=== PATIENT | female | born 1995 | race Two or more races ===

== ENCOUNTER 2022-04-12 12:40 | Inpatient (IN) | payer SELFPAY ==
[~2022-04-12] VITALS: Ht 160 cm; Wt 80.5 kg
[2022-04-12] MEDS ORDERED: miSOPROStol 50 MCG per PRE-CUT 1/2 TAB PO PRN (13:45)
[2022-04-12] MEDS ORDERED: NS/OXYTOCIN 20UNITS 1,000 ML IV SCH (13:45)
[2022-04-12] MEDS ORDERED: LIDOCAINE 2%HCL (LOCAL ANESTH.) INJ 10ml MDV IJ PRN (13:45)
[2022-04-12] MEDS ORDERED: TERBUTALINE SULFATE 1 MG/ML 1ML VIAL SC PRN (13:45)
[2022-04-12] MEDS ORDERED: PROMETHAZINE HCL 25 MG/ML 1ML IV PRN (13:45)
[2022-04-12] MEDS ORDERED: NALBUPHINE HCL 10 MG/1ml INJECTION IV PRN (13:45)
[2022-04-12] MEDS ORDERED: PHISODERM TOP SOLN 240ML BTL TOP PRN (13:45)
[2022-04-12] MEDS ORDERED: BUTORPHANOL TARTRATE 2 MG/1 ML VIAL IV PRN ×2 (13:45)
[2022-04-12] MEDS ORDERED: NS/OXYTOCIN 20UNITS 500 ML IV ONE ×2 (13:45→14:15)
[2022-04-12 14:21] LABS: Urine Bacteria NONE SEEN /hpf (None Seen); Urine Blood 2+ /uL (Negative); Urine Mucus FEW (None Seen); Urine Specific Gravity 1.023 (1.001-1.035); Urine WBC 8 /hpf (0 - 5)
[2022-04-12 14:35] LABS: Eosinophils # (auto) 0 10 ^3/uL (0-0.8); Eosinophils % (auto) 0.4 % (0.0-7.0); Lymphocytes # (auto) 1.8 10 ^3/uL (0.4-5.4); Monocytes # (auto) 0.6 10 ^3/uL (0-1.3); White Blood Cell 8.9 10^3/uL (4.4-10.8)
[2022-04-12 14:37] LABS: Basophils # (auto) 0 10 ^3/uL (0-0.2); Basophils % (auto) 0.3 % (0.0-2.0); Hematocrit 37.4 % (36.0-46.0); Hemoglobin 12.2 g/dL (12.2-16.2); Lymphocytes % (auto) 19.8 % (10.0-50.0); Mean Corpuscular Hemoglobin 25.2 pg (28.0-32.0); Mean Corpuscular Hgb Conc. 32.5 g/dL (32.0-36.0); Mean Corpuscular Volume 77.6 fL (80.0-100.0); Neutrophils # (auto) 6.5 10 ^3/uL (1.6-8.6); Neutrophils % (auto) 72.5 % (37.0-80.0); Red Blood Cells 4.83 10^6/uL (4.0-5.20); Red Cell Distribution Width 18.5 % (11.8-14.3)
[2022-04-12] MEDS ORDERED: miSOPROStol 100 mcg TAB PR PRN (14:45)
[2022-04-12] MEDS ORDERED: miSOPROStol 100 mcg TAB SL PRN (14:45)
[2022-04-12] MEDS ORDERED: CARBOPROST TROMETHAMINE 250 MCG/1ML VIAL IM PRN (14:45)
[2022-04-12 14:53] LABS: Albumin 2.8 g/dL (3.4-5.0); BUN/Creatinine Ratio 16.7; Calcium 9.1 mg/dL (8.5-10.1); INR 0.87 (0.9-1.15); Partial Thromboplastin Time 27.1 sec (24.6-33.4); Potassium 4.2 mmol/L (3.5-5.1)
[2022-04-12 14:55] LABS: Alcohol, Urine < 3.0 mg/dL (0-10); Amphetamine Screen, Urine NEGATIVE (NEGATIVE); Barbiturate Scree,Urine NEGATIVE (NEGATIVE); Benzodiazephine Screen, Urine NEGATIVE (NEGATIVE); Cannabinoid Screen, Urine NEGATIVE (NEGATIVE); Cocaine Screen, Urine NEGATIVE (NEGATIVE); Opiate Scree,Urine NEGATIVE (NEGATIVE); Phencyclidine Screen, Urine NEGATIVE (NEGATIVE)
[2022-04-12 14:56] LABS: Bilirubin, Total 0.2 mg/dL (0.2-1.0); Total Protein 6.3 g/dL (6.4-8.2)
[2022-04-12] MEDS: LACTATED RINGER'S 1,000 ML IV SCH ×2 (15:17→17:01)
[2022-04-12] MEDS: DERMOPLAST 60ML BOTTLE TOP PRN (17:02)
[2022-04-12] MEDS: WITCH HAZEL-GLYCERIN PAD TOP PRN (17:02)
[2022-04-12] MEDS ORDERED: fentaNYL 400mCg/200ml W ROPIVA 200 ML EPI SCH (19:45)
[2022-04-12] MEDS ORDERED: ePHEDrine SULFATE 50 MG/ML AMP IV ONE (19:45)
[2022-04-12] MEDS ORDERED: LACTATED RINGER'S 1,000 ML IV ONE (19:45)
[2022-04-12] MEDS ORDERED: NALOXONE HCL 0.4 MG/ML VIAL IV ONE (19:45)
[2022-04-12] MEDS ORDERED: fentaNYL CITRATE 100 MCG/2 ML VL IV ONE (20:00)
[2022-04-12] MEDS ORDERED: ROPIVACAINE HCL 200 ML EPI SCH (20:00)
[2022-04-13] MEDS ORDERED: ACETAMINOPHEN 325 MG TAB PO PRN (07:00)
[2022-04-13] MEDS ORDERED: ONDANSETRON ODT 4 MG TAB PO PRN (07:00)
[2022-04-13] MEDS: IBUPROFEN 600 MG TAB PO PRN ×2 (08:32→16:33)
[2022-04-13] MEDS: WITCH HAZEL-GLYCERIN PAD TOP PRN (08:32)
[2022-04-13] MEDS: DERMOPLAST 60ML BOTTLE TOP PRN (08:32)
[2022-04-13 09:00] VITALS: BP 105/59
[2022-04-13 11:00] VITALS: BP 106/59
[2022-04-13 15:00] VITALS: BP 118/58
[2022-04-13 19:30] VITALS: BP 111/71
[2022-04-13] MEDS ORDERED: DOCUSATE SOD 100 MG CAP PO SCH (22:00)
[2022-04-13 23:30] VITALS: BP 111/64
[2022-04-14 03:25] VITALS: BP 89/50
[2022-04-14] MEDS: IBUPROFEN 600 MG TAB PO PRN ×2 (05:56→11:21)
[2022-04-14 06:07] LABS: RPR Non Reactive (Non Reactive)
[2022-04-14] MEDS ORDERED: IBU600T PO (06:08)
[2022-04-14] MEDS ORDERED: DOCU100C10 PO (06:08)
[2022-04-14 07:00] VITALS: BP 91/54
[2022-04-14 11:00] VITALS: BP 116/57
[2022-04-14 12:37] VITALS: BP 116/57
== END 2022-04-14 12:35 | disposition home or self-care (01) | DRG 807 ==
LOC: LDRP 12:40 → OBSVTOIN 13:20 → LDRP 13:21
PROVIDERS: ADMIT Obstetrics & Gynecology; ATTEND Obstetrics & Gynecology
PROC: 3E0DXGC Introduction of Other Therapeutic Substance into Mouth and Pharynx, External Approach (ICD-10-PCS; 2022-04-12)
PROC: 10E0XZZ Delivery of Products of Conception, External Approach (ICD-10-PCS; principal; 2022-04-13)
PROC: 3E0R3BZ Introduction of Anesthetic Agent into Spinal Canal, Percutaneous Approach (ICD-10-PCS; 2022-04-13)
PROC: 00HU33Z Insertion of Infusion Device into Spinal Canal, Percutaneous Approach (ICD-10-PCS; 2022-04-13)
DX: O69.81X0 Labor and delivery complicated by cord around neck, without compression, not applicable or unspecified (principal); Z37.0 Single live birth; Z3A.38 38 weeks gestation of pregnancy; Z20.822 Contact with and (suspected) exposure to COVID-19
CPT/HCPCS: 36415; 59025; 59409; 62282; 80053; 80307; 81001; 81002; 84112; 85025; 85610; 85730; 86592; 86850; 86900; 86901; 94760; 96360; 96361; 96365; 96366; G0378; J2001